=== PATIENT | female | born 1970 | race Caucasian/White ===

== ENCOUNTER 2017-07-16 10:25 | Observation (INO) ==
[2017-07-16] MEDS ORDERED: Aspirin 81 MG TAB.CHEW PO STA (10:59)
[2017-07-16] MEDS ORDERED: Nitroglycerin 0.4 MG TAB.SUBL SL PRN ×2 (11:00→13:14)
--- NOTE | 2017-07-16 11:04 | Emergency Department Note ---
Disposition Clinical Impression: Heart palpitations, Dyspnea on exertion, History of atrial fibrillation without current medication Chest pain Qualifiers: Chest pain type: unspecified Qualified Code(s): R07.9 - Chest pain, unspecified Disposition: Admitted As Inpatient Condition: Fair Time of Disposition: 13:29 General Adult HPI - General Chief complaint: ED Chest Pain Stated complaint: hypertension Time Seen by Provider: 07/16/17 10:32 Source: patient Mode of arrival: ambulatory Limitations: no limitations Nursing Notes Reviewed: Yes Vital Signs Reviewed: Yes - History of Present Illness HPI Narrative: Patient is a 47-year-old female that presents to the emergency department due to having heaviness in the center of her chest as well as feeling like her heart skips a beat. Patient states that this all began around 8:00 this morning. Patient states that the chest heaviness does not radiate anywhere. She does admit to having some shortness of breath with this. Patient denies any diaphoresis, nausea, vomiting. She does state that moving or talking seems to make her symptoms worse. Nothing seems to make her symptoms better. Patient states that she did have a headache this morning and her blood pressure was 179/105. She states that she does not normally have issues with high blood pressure. He also states that she has had congestion recently as well as a cough with sputum production. Pain Scale: 7 - Related Data Home Medications Medication Instructions Recorded Confirmed Insulin Degludec [Tresiba 25 - 60 units SQ QAM 07/16/17 07/16/17 Flextouch U-100] Liraglutide [Victoza 2-Manuel] 1.8 mg SQ DAILY 07/16/17 07/16/17 Omeprazole [PriLOSEC] 20 mg PO DAILY 07/16/17 07/16/17 Allergies Allergy/AdvReac Type Severity Reaction Status Date / Time No Known Allergies Allergy Verified 07/16/17 10:31 All systems ED: reviewed and negative except as stated. Constitutional: Denies: fever, chills Cardiovascular: Reports: chest pain, palpitations Respiratory: Reports: cough, dyspnea, sputum production Gastrointestinal: Denies: abdominal pain, nausea, vomiting Genitourinary: Denies: urgency, dysuria, frequency Neurological: Reports: headache Past Medical History - Past Medical History Medical history: Reports: diabetes Psychiatric history: Reports: no psych history - Social History Smoking Status: Never smoker Smokeless Tobacco Status: No Alcohol use: Reports: none Drug use: Reports: none Physical Exam - General Limitations: no limitations General appearance: alert, anxious - Head Head exam: atraumatic, normocephalic - Neck Neck exam: Present: normal inspection, full ROM, trachea midline - Respiratory Respiratory exam: Present: normal lung sounds bilaterally, wheezes (Right upper lobe). Absent: respiratory distress - Cardiovascular Cardiovascular exam: Present: regular rate, normal rhythm, normal heart sounds, +S1, +S2 - Abdominal Exam Abdominal exam: Present: soft, tenderness, normal bowel sounds Abdominal tenderness: Present: epigastrium, mild - Neurological Exam Neurological exam: Present: alert, oriented X3 - Psychiatric Psychiatric exam: Present: normal affect, normal mood - Skin Skin exam: Present: warm, dry, intact Course - Consultations Consultation #1: I called and spoke with Dr. Tavares and he has accepted the patient to his service. The patient will be admitted to the hospital at this time. Time: 12:45 Vital Signs Temperature 98.2 F 07/16/17 10:25 Pulse Rate 86 07/16/17 10:25 Respiratory Rate 16 07/16/17 10:25 Blood Pressure 163/95 07/16/17 10:25 O2 Sat by Pulse Oximetry 97 07/16/17 10:25 Temperature 98.2 F 07/16/17 10:25 Pulse Rate 82 07/16/17 12:35 Respiratory Rate 22 07/16/17 12:35 Blood Pressure 151/95 07/16/17 12:35 O2 Sat by Pulse Oximetry 96 07/16/17 12:35 Oxygen Delivery Oxygen Delivery Room Air Medical Decision Making - [facility] Narrative Medical decision making narrative: The patient having pressure in the center of her chest within a cardiac workup as well as obtain a lipase. We will give the patient aspirin. The patient has refused nitroglycerin because of having treatments to her eyes for diabetic retinopathy. The patient's laboratory results show slight elevation in her hemoglobin as well as her glucose. Troponin was 0.02 and the lipase is within normal limits. The chest x-ray showed no acute pulmonary process. EKG showed sinus rhythm. When the patient went for her chest x-ray from transfer from the bed to the x-ray table she became somewhat short of breath. The patient denied any leg pain, leg swelling, long car rides, hormone therapy, history of cancer, history of clot. Due the patient having continual chest discomfort as well as dyspnea on exertion we feel that the patient should be admitted to the hospital for further observation and evaluation. I spoken with and he has accepted the patient to his service. I have called and spoke with Dr Tavares and he has accepted the patient to his service. The patient will be admitted to the hospital at this time. - Medical Records Medical records reviewed: Yes I reviewed the patient's medical records. - Lab Data Lab results reviewed: Yes I reviewed the patient's lab results. Result diagrams: 07/16/17 10:59 07/16/17 10:59 Lab Results 07/16/17 07/16/17 07/16/17 Range/Units 10:59 10:59 10:59 WBC 5.8 (4.3-11.1) K/mcL RBC 5.60 H (3.82-4.97) M/mcL Hgb 15.8 H (11.5-15.4) g/dL Hct 48.5 H (35.3-44.9) % MCV 86.6 (83.0-100.0) fL MCH 28.2 (28.0-33.3) pg MCHC 32.6 (31.6-35.5) g/dL RDW 13.2 (11.5-14.5) % Plt Count 251 (140-400) K/mcL MPV 10.9 (9.4-12.4) fL Immature Gran % 0.3 (0-4) % Seg Neutrophils % 65.7 % Lymphocytes % 24.0 % Monocytes % 6.9 % Eosinophils % 2.4 % Basophils % 0.7 % Neutrophils # 3.8 (1.6-8.9) K/mcL Lymphocytes # 1.4 (0.6-4.6) K/mcL Monocytes # 0.4 (0.0-1.3) K/mcL Eosinophils # 0.1 (0.0-0.6) K/mcL Basophils # 0.0 (0.0-0.2) K/mcL Immature Plt Fraction 5.7 (1.1-6.1) % Sodium 139 (136-145) mEq/L Potassium 3.6 (3.5-4.5) mEq/L Chloride 104 (98-109) mEq/L Carbon Dioxide 25 (19-29) mEq/L BUN 12 (7-20) mg/dL Creatinine 0.69 (0.57-1.11) mg/dL Est GFR ( Amer) > 60 (> 60) Est GFR (Non-Af Amer) > 60 (> 60) BUN/Creatinine Ratio 17 (6-26) Glucose 139 H (70-99) mg/dL Calculated Osmolality 290 (280-300) Calcium 9.3 (8.6-10.8) mg/dL Troponin I 0.02 (0-0.03) ng/mL Lipase 21 (8-78) Units/L - Radiology Data Radiology results reviewed: Yes I reviewed the patient's radiology results. Chest X-Ray 07/16/17 10:58 IMPRESSION: No acute process. D/ / Yarely Brantley MD / Yarely Brantley MD Interpreting Provider: Yarely Brantley MD - EKG Data EKG #1 EKG attestation: Yes I reviewed and interpreted this EKG. EKG results narrative: EKG showed a sinus rhythm with a rate of 85 bpm, SD interval of 219, QRS duration of 118, QTC of 393. There are Q waves in leads 3. No acute ischemic changes were noted on this EKG. No old EKG was available for comparison. Attestation Statement - Attestation Attestation: I examined this patient and my medical decision-making was reviewed with the Resident Physician, Dr. Castillo. I agree with the documented findings, disposition and treatment plan as described except to the extent set forth below. Patient is a 39-year-old white female with a history of diabetes mellitus who presents to the emergency Department today with complaints of gradual onset substernal chest pain associated with palpitations shortness of breath diaphoresis and nausea. Patient states this began this morning about 8:00. Patient has a history of prior atrial fibrillation and states that she was concerned that her heart rate was out of rhythm and now is causing her symptoms. Patient states it was about 9 years ago when she had atrial fibrillation although currently she is not on any beta blockers, calcium channel blockers or other blood thinning medications. She states she has had no problem with her heart rate since that time. Patient states that her symptoms are exacerbated by exertion any attempts to get up and even walk a few steps across the room exacerbate her condition and bring back her symptoms. Symptoms are resolved with rest. Here in the laying in the bed patient denies any current symptoms, stating it has resolved she has been sitting still. Patient's physical exam findings as documented. Vital signs are stable. Mild elevation in patient's blood pressure. On arrival patient was placed on a manager monitoring and pulse ox IV saline well was established and EKG was obtained patient's EKG was normal sinus rhythm, with evidence for LVH and old inferior changes but no acute ischemia today. Patient was given aspirin, nitroglycerin trial was ordered but patient declined. Patient has been pain-free during her ED course with one exacerbation with activity when she was moved to the x-ray table for chest x-ray. Patient's chest x-ray is unremarkable. Lab evaluation is within normal limits, initial troponin was 0.02. Patient's heart score equals 5. Patient would benefit from hospitalization admission and further evaluation of these symptoms were exertional chest pain and dyspnea. Patient on arrival is perk negative. He should with positive family history for CAD. Discussed admission with the patient who agrees with this plan and case was discussed with the hospitalist who agreed to admit the patient for further evaluation and treatment. Patient is resting comfortably at this time improvement in her blood pressure and pain free at rest.
[2017-07-16 11:08] LABS: Basophils % 0.7 %; Eosinophils # 0.1 K/mcL (0.0-0.6); Eosinophils % 2.4 %; Hematocrit 48.5 % (35.3-44.9); Hemoglobin 15.8 g/dL (11.5-15.4); Immature Granulocytes % 0.3 % (0-4); Immature Platelets 5.7 % (1.1-6.1); Lymphocytes # 1.4 K/mcL (0.6-4.6); Mean Corpuscular HGB Conc 32.6 g/dL (31.6-35.5); Mean Corpuscular Hemoglobin 28.2 pg (28.0-33.3); Mean Corpuscular Volume 86.6 fL (83.0-100.0); Mean Platelet Volume 10.9 fL (9.4-12.4); Monocytes # 0.4 K/mcL (0.0-1.3); Monocytes % 6.9 %; Neutrophils # 3.8 K/mcL (1.6-8.9); Platelet Count 251 K/mcL (140-400); Red Cell Distribution Width 13.2 % (11.5-14.5); Segmented Neutrophils % 65.7 %
[2017-07-16 11:19] LABS: BUN/Creatinine Ratio 17 (6-26); Blood Urea Nitrogen 12 mg/dL (7-20); Calcium 9.3 mg/dL (8.6-10.8); Carbon Dioxide 25 mEq/L (19-29); Chloride 104 mEq/L (98-109); Glucose 139 mg/dL (70-99); Lipase 21 Units/L (8-78); Osmolality,Calculated 290 (280-300); Potassium 3.6 mEq/L (3.5-4.5); Sodium 139 mEq/L (136-145); eGFR For African Americans > 60 (> 60); eGFR For Non-African Americans > 60 (> 60)
[2017-07-16] MEDS ORDERED: Naloxone 0.4 MG/ML INJ IVP PRN (13:10)
[2017-07-16] MEDS ORDERED: Dextrose Gel 15 GM PO PRN ×2 (13:15)
[2017-07-16] MEDS ORDERED: D5% in Water 1,000 ML IVC PRN (13:15)
[2017-07-16] MEDS ORDERED: *HR* Dextrose 50 % in Water (Syg) 50 ML SYRINGE IVP PRN (13:15)
[2017-07-16] MEDS ORDERED: Ipratropium/Albuterol Neb 3 ML IH PRN (13:21)
--- NOTE | 2017-07-16 13:27 | Internal Med History&Physical ---
<Jennifer Leach M - Last Filed: 07/16/17 13:23> Date of Encounter: 07/16/17 Time of Encounter: 13:24 Assessment and Plan (1) Chest pain Current visit: Yes Status: Acute Patient reports shortness of breath, palpitations and chest pressure. EKG showed sinus rhythm with no ischemic changes. Initial troponin negative at 0.02. She has risk factors including diabetes, obesity and family history. Continuous case monitor serial troponins lipid panel with morning labs stress test and echocardiogram. Qualifiers: Chest pain type: precordial pain Qualified Code(s): R07.2 - Precordial pain (2) Heart palpitations Current visit: Yes Status: Acute Patient reports occasional palpitations. She reports a history of afib that resolved on its own, and did not require sustained treatment. EKG shows sinus rhythm with no acute ischemic changes and 1st degree AV block. Continous case monitor echocardiogram Consider Holter monitor on discharge if she continues to experience palpitations. (3) Hx of atrial fibrillation without current medication Current visit: Yes Status: Chronic see above. (4) Upper respiratory infection Current visit: Yes Status: Acute Patient reports congestion, cough, and shortness of breath for the last week. CXR showed no acute process. She is afebrile and WBC is normal at 5.8. Likely viral upper respiratory infection and/or bronchitis. Mucinex BID Duonebs Q6hr PRN. Qualifiers: URI type: unspecified viral URI Qualified Code(s): J06.9 - Acute upper respiratory infection, unspecified; B97.89 - Other viral agents as the cause of diseases classified elsewhere (5) Type 2 diabetes mellitus Current visit: Yes Status: Acute diabetic diet. check A1c Hold victoza check blood sugars ACHS sliding scale correction dose ACHS Hypoglycemic protocol Patient takes a sliding scale of long acting insulin (Tresiba) in the morning depending on fasting blood sugar. Will give half her lowest dose tomorrow as she will be NPO after midnight for testing. Qualifiers: Diabetes mellitus complication status: with ophthalmic complications Diabetes mellitus complication detail: with diabetic retinopathy Diabetic retinopathy severity: with unspecified retinopathy severity Diabetes mellitus macular edema: macular edema presence unspecified Diabetes mellitus terminal gauger supervisor insulin use: with nursing home use Laterality: bilateral Qualified Code(s): E11.319 - Type 2 diabetes mellitus with unspecified diabetic retinopathy without macular edema; Z79.4 - assisted (current) use of insulin (6) Hypertension Current visit: Yes Status: Acute Patient is hypertensive with blood pressures running 150s-170s systolic. She reports she was previously diagnosed with hyprtension, but after weight loss, her blood pressures improved and she was taken off her medication. Will give PRN hydralazine for SBP > 160 or dbp > 100. Consider starting her on Gab and/ or HCTZ if she remains hypertensive. Qualifiers: Hypertension type: essential hypertension Qualified Code(s): I10 - Essential (primary) hypertension (7) DVT prophylaxis Current visit: Yes Status: Acute ant-embolic stockings Lovenox SQ daily Internal Medicine - H&P: HPI Chief complaint: chest pain Admitted From: Emergency Dept Plans for Post Hospital Care: Home History of present illness: Ms. Gooden is a 47 year old female diabetes, GERD, asthma presents emergency department today with complaints of chest pain, palpitations and shortness of breath. Patient reports that she has not been feeling well for the last week with a cough and shortness of breath. She reports the cough is productive of thick clear sputum as the week went on. She has reports the shortness of breath is worse with activity. She also reports occasional chills and headache. Today she developed heaviness in her chest as well as some palpitations. She reports the heaviness is still there. She denies any numbness and tingling, fever or sweats. She denies any nausea, vomiting, abdominal pain or diarrhea. Evaluation in the emergency department included an EKG which showed sinus rhythm with no acute ischemic changes, first-degree AV block. Chest x-ray showed no acute process. Troponin was negative at 0.02. She was hypertensive with blood pressures 150s-170s systolic. On exam, patient alert and oriented, in no acute distress. Heart had regular rate and rhythm, lungs are clear bilaterally to auscultation. Abdomen was soft, nontender with positive bowel sounds. No peripheral edema, peripheral pulses intact. Past Med Surg Social Fam HX - Past Medical History Medical history: diabetes Psychiatric history: no psych history - Past Surgical History Surgical History: , cholecystectomy, hysterectomy, orthopedic, other - Social History Smoking Status: Never smoker Smokeless Tobacco Status: No Alcohol use: none Drug use: none - Family History Mother Living Status: Hx Family Cardiac Disorders: Yes Father Living Status: Cause of : AAA Hx Family Cardiac Disorders: Yes (AAA) Internal Medicine - H&P: Meds Insulin Degludec [Tresiba Flextouch U-100] 25 - 60 units SQ QAM 07/16/17 [ History] Liraglutide [Victoza 2-Manuel] 1.8 mg SQ DAILY 07/16/17 [History] Omeprazole [PriLOSEC] 20 mg PO DAILY 07/16/17 [History] 3 Allergy/AdvReac Type Severity Reaction Status Date / Time No Known Allergies Allergy Verified 07/16/17 10:31 All Systems PM: A 10-system review of systems was performed and is negative for pertinent findings except as documented above in the HPI. - Constitutional Constitutional: chills, fatigue, no fever(s), no night sweats - EENT Eyes: no change in vision, no discharge, no pain, no photophobia Ears: no ear discharge, no ear pain, no tinnitus Nose, mouth and throat: no dysphagia, no nasal discharge, no neck pain, no sore throat - Cardiovascular Cardiovascular ROS IM: chest pain, dyspnea, dyspnea on exertion, palpitations, no diaphoresis, no lightheadedness, no syncope - Respiratory Respiratory: cough, dyspnea, excessive phlegm production, no wheezing - Gastrointestinal Gastrointestinal: no abdominal pain, no diarrhea, no hematemesis, no hematochezia, no melena, no nausea, no vomiting - Genitourinary Genitourinary: no change in urinary stream, no dysuria, no flank pain, no hematuria - Musculoskeletal Musculoskeletal ROS IM: no numbness, no tingling - Integumentary Integumentary IM: no rash, no unusual bruising - Neurological Neurological ROS: no confusion, no convulsions, no focal weakness, no numbness, no tingling, no tremor(s) - Hematologic/Lymphatic Hematologic/Lymphatic: no easy bruising - Constitutional Vitals: Temp Pulse Resp BP Pulse Ox 98.2 F 82 22 151/95 96 07/16/17 10:25 07/16/17 12:35 07/16/17 12:35 07/16/17 12:35 07/16/17 12:35 General appearance: Present: A&O X 3, pleasant, obese - Head Head exam: Present: atraumatic, normocephalic - Eye Eye exam: Present: PERRL, conjuntiva pink, sclera anicteric Pupils: Present: PERRL - Neck Neck exam general surgery: Present: supple, trachea midline. Absent: lymphadenopathy - Respiratory Respiratory exam: Present: CTAB. Absent: accessory muscle use, rales, rhonchi, wheezes - Cardiovascular Cardiovascular exam: Present: RRR, +S1, +S2. Absent: diastolic murmur, gallop, rubs, systolic murmur - GI/Abdominal GI/Abdominal exam: Present: normal bowel sounds, soft, no peritoneal signs. Absent: distended, tenderness - Extremities Exam Extremities exam: Present: warm, radial pulses palpable and symmetrical. Absent : calf tenderness, cyanotic, pedal edema - Neurological Exam Neurological exam: Present: CN II-XII intact, oriented X3, no focal deficits. Absent: pronater drift, facial droop, speech deficit - Skin Skin exam: Present: dry, intact Internal Med - H&P Results - Labs CBC & Chem 7: 07/16/17 10:59 07/16/17 10:59 Labs: All Lab Results (24 Hours) 07/16/17 07/16/17 07/16/17 Range/Units 10:59 10:59 10:59 WBC 5.8 (4.3-11.1) K/mcL RBC 5.60 H (3.82-4.97) M/mcL Hgb 15.8 H (11.5-15.4) g/dL Hct 48.5 H (35.3-44.9) % MCV 86.6 (83.0-100.0) fL MCH 28.2 (28.0-33.3) pg MCHC 32.6 (31.6-35.5) g/dL RDW 13.2 (11.5-14.5) % Plt Count 251 (140-400) K/mcL MPV 10.9 (9.4-12.4) fL Immature Gran % 0.3 (0-4) % Seg Neutrophils % 65.7 % Lymphocytes % 24.0 % Monocytes % 6.9 % Eosinophils % 2.4 % Basophils % 0.7 % Neutrophils # 3.8 (1.6-8.9) K/mcL Lymphocytes # 1.4 (0.6-4.6) K/mcL Monocytes # 0.4 (0.0-1.3) K/mcL Eosinophils # 0.1 (0.0-0.6) K/mcL Basophils # 0.0 (0.0-0.2) K/mcL Immature Plt Fraction 5.7 (1.1-6.1) % Sodium 139 (136-145) mEq/L Potassium 3.6 (3.5-4.5) mEq/L Chloride 104 (98-109) mEq/L Carbon Dioxide 25 (19-29) mEq/L BUN 12 (7-20) mg/dL Creatinine 0.69 (0.57-1.11) mg/dL Est GFR ( Amer) > 60 (> 60) Est GFR (Non-Af Amer) > 60 (> 60) BUN/Creatinine Ratio 17 (6-26) Glucose 139 H (70-99) mg/dL Calculated Osmolality 290 (280-300) Calcium 9.3 (8.6-10.8) mg/dL Troponin I 0.02 (0-0.03) ng/mL Lipase 21 (8-78) Units/L - Diagnostic Studies Chest x-ray Additional comments: Chest X-Ray 07/16/17 10:58 IMPRESSION: No acute process. D/ / Yarely Brantley MD / Yarely Brantley MD Interpreting Provider: Yarely Brantley MD <Kenia Tavares - Last Filed: 07/16/17 18:49> Date of Encounter: 07/16/17 Internal Medicine - H&P: HPI History of present illness: Ms. Gooden is a 47 year old female All Systems PM: A 10-system review of systems was performed and is negative for pertinent findings except as documented above in the HPI. - Constitutional Vitals: Temp Pulse Resp BP Pulse Ox 97.9 F 104 18 144/72 94 07/16/17 16:20 07/16/17 16:20 07/16/17 16:20 07/16/17 16:20 07/16/17 16:20 Internal Med - H&P Results - Labs CBC & Chem 7: 07/16/17 10:59 07/16/17 10:59 Labs: Cardiac Enzymes 07/16/17 Range/Units 16:46 Troponin I 0.00 (0-0.03) ng/mL - Attending Attestation I have personally performed a face to face evaluation on this patient and I discussed the assessment and plan with the nurse practitioner. I have reviewed and agree with the documented care plan. History and Exam by me shows: Ms. Gooden is a 47 year old female diabetes, GERD, asthma presents emergency department today with complaints of chest pain, palpitations and shortness of breath. Patient reports that she has not been feeling well for the last week with a cough and shortness of breath. She reports the cough is productive of thick clear sputum as the week went on. She has reports the shortness of breath is worse with activity. She also reports occasional chills and headache. Today she developed heaviness in her chest as well as some palpitations. She reports the heaviness is still there. She denies any numbness and tingling, fever or sweats. She denies any nausea, vomiting, abdominal pain or diarrhea. Gen: A, A, O X3 Chest: mild diminished BS b/l, no crackles, rales, no wheezing Heart: S1 S2 + RRR No murmurs a/p 1. Acute chest pain Need to r/o ACS on Tele..Serial troponin Stress test in AM 2. URI symptoms Mostly viral etiology no abx needed supportive care
[2017-07-16 13:53] LABS: Hemoglobin A1C 7.8 %
[2017-07-16] MEDS: Insulin LISPRO 300 UNITS/3 ML VIAL SQ SCH ×2 (17:12→17:23)
[2017-07-16] MEDS: Acetaminophen 325 MG TABLET PO PRN (18:04)
[2017-07-16] MEDS ORDERED: Insulin DETEMIR 100 UNIT/ML X5UNITS SQ SCH (21:00)
[2017-07-16] MEDS ORDERED: Insulin LISPRO 300 UNITS/3 ML VIAL SQ SCH (21:00)
[2017-07-17 05:21] LABS: Basophils % 0.9 %; Eosinophils # 0.2 K/mcL (0.0-0.6); Eosinophils % 3.7 %; Hematocrit 42.2 % (35.3-44.9); Immature Granulocytes % 0.4 % (0-4); Lymphocytes # 1.6 K/mcL (0.6-4.6); Lymphocytes % 34.4 %; Mean Corpuscular HGB Conc 32.7 g/dL (31.6-35.5); Mean Corpuscular Hemoglobin 28.8 pg (28.0-33.3); Mean Corpuscular Volume 88.1 fL (83.0-100.0); Mean Platelet Volume 11.1 fL (9.4-12.4); Monocytes # 0.3 K/mcL (0.0-1.3); Neutrophils # 2.5 K/mcL (1.6-8.9); Platelet Count 215 K/mcL (140-400); Red Blood Count 4.79 M/mcL (3.82-4.97); Red Cell Distribution Width 13.5 % (11.5-14.5); Segmented Neutrophils % 53.6 %
[2017-07-17 05:23] LABS: Hemoglobin 13.8 g/dL (11.5-15.4)
[2017-07-17 05:50] LABS: BUN/Creatinine Ratio 17 (6-26); Blood Urea Nitrogen 13 mg/dL (7-20); Calcium 9.1 mg/dL (8.6-10.8); Carbon Dioxide 25 mEq/L (19-29); Chloride 105 mEq/L (98-109); Chol/HDL Ratio 5.2 (0-4.9); Cholesterol 172 mg/dL (< 200); Glucose 234 mg/dL (70-99); HDL Cholesterol 33 mg/dL (40-59); LDL Cholesterol,Calculated 98 mg/dL (0-99); Osmolality,Calculated 296 (280-300); Potassium 4.1 mEq/L (3.5-4.5); Sodium 139 mEq/L (136-145); Triglycerides 205 mg/dL (< 150); eGFR For African Americans > 60 (> 60); eGFR For Non-African Americans > 60 (> 60)
[2017-07-17] MEDS ORDERED: Regadenoson 0.4 MG/5 ML SYRINGE IVP ONE (06:12)
[2017-07-17] MEDS ORDERED: *HR* Enoxaparin 40 MG/0.4 ML SYRINGE SQ SCH (07:00)
--- NOTE | 2017-07-17 09:11 | Internal Med Progress Note ---
Date of Encounter: 07/17/17 Time of Encounter: 09:11 - Assessment and plan (1) Chest pain Current Visit: Yes Status: Acute Assessment and plan: 47 y F with w/Hx of Afib (dx 9 yrs ago no AC) and DM presenting with pressure in the center of her chest, and SOB on transfer during CXR -substernal chest pain associated with palpitations shortness of breath diaphoresis and nausea. - exacerbated by exertion, resolved with rest. ED: Troponin neg x 2 chest x-ray showed no acute pulmonary process EKG was normal sinus rhythm, with evidence for LVH Patient was given aspirin, nitroglycerin trial was ordered but patient declined. Qualifiers: Chest pain type: precordial pain Qualified Code(s): R07.2 - Precordial pain (2) Heart palpitations Current Visit: Yes Status: Acute Assessment and plan: On telemetry (3) Hx of atrial fibrillation without current medication Current Visit: Yes Status: Chronic (4) Dyspnea on exertion Current Visit: Yes Status: Acute (5) Hypertension Current Visit: Yes Status: Acute Qualifiers: Hypertension type: essential hypertension Qualified Code(s): I10 - Essential (primary) hypertension (6) Type 2 diabetes mellitus Current Visit: Yes Status: Acute Qualifiers: Diabetes mellitus complication status: with ophthalmic complications Diabetes mellitus complication detail: with diabetic retinopathy Diabetic retinopathy severity: with unspecified retinopathy severity Diabetes mellitus macular edema: macular edema presence unspecified Diabetes mellitus terminal operations supervisor insulin use: with terminal operations supervisor use Laterality: bilateral Qualified Code(s): E11.319 - Type 2 diabetes mellitus with unspecified diabetic retinopathy without macular edema; Z79.4 - senior living (current) use of insulin (7) DVT prophylaxis Current Visit: Yes Status: Acute - Subjective Interval history: No acute events overnight. - Constitutional Vitals: Temp Pulse Resp BP Pulse Ox 97.8 F 90 16 140/83 91 07/17/17 09:05 07/17/17 09:05 07/17/17 09:05 07/17/17 09:05 07/17/17 09:05 General appearance: Present: A&O X 3, pleasant, obese Internal Medicine: Result - Labs CBC & Chem 7: 07/17/17 04:59 07/17/17 04:59 Labs: Short CBC 07/17/17 Range/Units 04:59 WBC 4.6 (4.3-11.1) K/mcL Hgb 13.8 D (11.5-15.4) g/dL Hct 42.2 (35.3-44.9) % Plt Count 215 (140-400) K/mcL Neutrophils # 2.5 (1.6-8.9) K/mcL BMP 07/17/17 04:59 Sodium 139 Potassium 4.1 Chloride 105 Carbon Dioxide 25 BUN 13 Creatinine 0.76 Glucose 234 H Calcium 9.1 Cardiac Enzymes 07/16/17 07/16/17 Range/Units 16:46 22:03 Troponin I 0.00 0.00 (0-0.03) ng/mL - Impressions Impressions Echocardiogram 07/16/17 13:16 Impressions: LVEF 60-65%. Normal LV chamber size and function. Mild asymmetric hypertrophy of the basal septum. Mild left ventricular diastolic dysfunction. Normal right ventricular structure and function. No significant valvular dysfunction. Left Ventricular Wall Motion: Rest Echo Findings All wall segments showed normal motion. Findings: Study Quality * Technically adequate exam. ECG Findings * Normal sinus rhythm. Left Ventricle * LVEF 60-65%. * Normal LV chamber size and function. * Mild asymmetric hypertrophy of the basal septum. * Mild left ventricular diastolic dysfunction. Right Ventricle * Normal right ventricular structure and function. Left Atrium * Normal left atrial size. Right Atrium * Normal right atrial size. Interatrial Septum * Interatrial septum not well evaluated. Aortic Valve * Trileaflet aortic valve with normal function. * No aortic regurgitation. * No aortic stenosis. Mitral Valve * Normal mitral valve structure and function. * No mitral regurgitation. * No mitral stenosis. Tricuspid Valve * Normal tricuspid valve structure and function. * No tricuspid regurgitation. * Unable to estimate RVSP due to lack of TR jet. Pulmonic Valve * Pulmonic valve not well visualized. * No pulmonic regurgitation. Aorta * Normally sized aortic root. Pericardium * The pericardium appears normal. IVC * The IVC is not well evaluated. Pulmonary Artery * Normal visualized portions of the main pulmonary artery. - VTE Documentation of Mechanical Device: Graduated compression elastic hosiery Consult Discharge Plan - Plan Referrals: Sheila Villanueva, HOGS[employer] DUMPER [Primary Care Provider] - (web request sent on 07/17/17)
[2017-07-17] MEDS: Insulin LISPRO 300 UNITS/3 ML VIAL SQ SCH ×2 (09:29→12:00)
--- NOTE | 2017-07-17 09:48 | Nuclear Medicine Stress Report ---
Exercise Nuclear Stress Name: Christiane Gooden Date of Study: 07/17/2017 Date: 1970 Ht: 68.0 in Medical Record#: [id number] Age: 47 Wt: 218.0 lb Gender: Female Order #: [id number] Location: [facility] IP Room: [facility] Supervising Provider: Segun Magallon CNP Reading Physician: Wei Starr DO, FACRoxana, AMARILYS MARRERO Ordering Physician: Hernandez Fox MD Stress Technologist: Jin Johnson, WALLCOVERING TEXTURER, CPFT Brim Greaser Operator: Sole Teran Indications: Palpitations Impression: The exercise capacity was average. No chest discomfort reported. Gated EF = 75%. Small sized, moderate intensity, fixed apical lateral defect. Perfusion is worse on rest imaging and wall motion is normal. Findings are consistent with artifact. Perfusion imaging was negative for ischemia or infarct. History: Diabetes Stress Test Summary: Stress Test Type: Treadmill Protocol: Rui Baseline Information: Initial Heart Rate: 91 Blood Pressure: 138/88 Stress Information: Stress Time: 6 min 41 sec Test Terminated Due to (primary): Dyspnea Maximum Blood Pressure: 180/86 Maximum Heart Rate: 157 Percent Maximum Heart Rate Achieved: 91 Double Product: 18127 METS Reached: 7 Symptoms: Shortness of breath, Fatigue Nuclear Summary: SPECT myocardial perfusion imaging using Tc99m Sestamibi given intravenously was performed at rest and following cardiac stress testing. The resting images were obtained following initial dose of 11.3 mCi. Following stress an additional dose of 32.3 mCi was given at peak exercise or 30 seconds post regadenoson infusion. Medication Given: Time Medication Dose Units Route Findings: Stress Note * Resting ECG demonstrated normal sinus rhythm. * No baseline arrhythmias were noted. * Exercise ECG is negative for ischemia. * No arrhythmias were noted during stress. * The exercise capacity was average. * Patient had no chest pain during stress. * Normal hemodynamic responses to exercise. Study Quality * Study quality is average. Gated EF % * Gated EF = 75%. Left Ventricle * The left ventricle is not dilated. NORMALS * Normal wall motion. Apical Perfusion Rest * The apical lateral segment shows a moderate reduction in perfusion. Apical Perfusion Stress * The apical lateral segment shows a moderate reduction in perfusion. TID * No evidence of transient ischemic dilatation. * TID ratio = 0.88. Lung Uptake * There is no evidence of increase lung uptake. Updated by Wei Starr DO, GRETTA, JANES, AMARILYS on 07/17/2017 9:42:14 AM electronically signed on 07/17/2017 9:43:17 AM with status of Final
[2017-07-17 11:41] VITALS: BP 150/88
--- NOTE | 2017-07-17 13:57 | Electrocardiograph Report ---
[facility] Test Date: 2017-07-16 Pat Name: Christiane Gooden Department: 102 Room: 2A25 Gender: F Human Resources Recruiter: Lucas : 1970 Requested By: Stiven Castillo Order Number: [id number] Reading MD: Thomas Lacey MD Measurements Intervals Elizabeth Rate: 85 P: 5 NH: 219 QRS: -20 QRSD: 118 T: 8 QT: 351 QTc: 393 Interpretive Statements SINUS RHYTHM WITH FIRST DEGREE AV BLOCK MINIMAL VOLTAGE CRITERIA FOR LVH, CONSIDER NORMAL VARIANT [MEETS CRITERIA IN ONE OF: R(aVL), S(V1), R(V5), R(V5/V6)+S(V1)] INFERIOR MYOCARDIAL INFARCTION [40+ ms Q WAVE AND/OR ST/T ABNORMALITY IN II/aVF], PROBABLY OLD Electronically Signed On 07-17-2017 13:55:27 EDT by Thomas Lacey MD
[2017-07-17] MEDS: Acetaminophen 325 MG TABLET PO PRN (14:23)
--- NOTE | 2017-07-17 14:36 | Discharge Summary ---
<ElijahEva - Last Filed: 07/17/17 17:04> Date of Encounter: 07/17/17 Time of Encounter: 14:33 - Discharge Diagnosis (1) Chest pain Priority: Primary Status: Acute Qualifiers: Chest pain type: precordial pain Qualified Code(s): R07.2 - Precordial pain (2) Heart palpitations Priority: Secondary Status: Chronic (3) Hypertension Priority: Primary Status: Acute Qualifiers: Hypertension type: essential hypertension Qualified Code(s): I10 - Essential (primary) hypertension (4) Dyspnea on exertion Priority: Primary Status: Acute (5) Hx of atrial fibrillation without current medication Priority: Secondary Status: Chronic (6) Type 2 diabetes mellitus Priority: Primary Status: Chronic Qualifiers: Diabetes mellitus complication status: with ophthalmic complications Diabetes mellitus complication detail: with diabetic retinopathy Diabetic retinopathy severity: with unspecified retinopathy severity Diabetes mellitus macular edema: macular edema presence unspecified Diabetes mellitus middle or intermediate school principal insulin use: with detention use Laterality: bilateral Qualified Code(s): E11.319 - Type 2 diabetes mellitus with unspecified diabetic retinopathy without macular edema; Z79.4 - USP (current) use of insulin (7) DVT prophylaxis Priority: Secondary Status: Acute - Discharge Medications Prescriptions: Atorvastatin [Lipitor] 40 mg PO HS #30 tablet levoFLOXacin [Levaquin] 750 mg PO DAILY #5 tablet Lisinopril [Zestril] 10 mg PO DAILY #30 tablet Home Medications: Insulin Degludec [Tresiba Flextouch U-100] 25 - 60 units SQ QAM 07/16/17 [ History] Liraglutide [Victoza 2-Manuel] 1.8 mg SQ DAILY 07/16/17 [History] Omeprazole [PriLOSEC] 20 mg PO DAILY 07/16/17 [History] Atorvastatin [Lipitor] 40 mg PO HS #30 tablet 07/17/17 [Rx] Lisinopril [Zestril] 10 mg PO DAILY #30 tablet 07/17/17 [Rx] levoFLOXacin [Levaquin] 750 mg PO DAILY #5 tablet 07/17/17 [Rx] Allergies/Adverse Reactions: 3 Allergy/AdvReac Type Severity Reaction Status Date / Time No Known Allergies Allergy Verified 07/16/17 10:31 Procedures/tests Complete & Pending: Procedures Performed prior 72 hours Category Date Time Status NM lisa perf SPECT multi [NM] Routine Exams 07/16/17 13:37 Taken EV echocardiogram Routine Y 07/16/17 13:16 Completed SP exercise nuclear stress Routine Y 07/17/17 07:45 Completed Chest X-Ray 07/16/17 10:58 IMPRESSION: No acute process. D/ / Yarely Brantley MD / Yarely Brantley MD Interpreting Provider: Yarely Brantley MD Echocardiogram 07/16/17 13:16 Impressions: LVEF 60-65%. Normal LV chamber size and function. Mild asymmetric hypertrophy of the basal septum. Mild left ventricular diastolic dysfunction. Normal right ventricular structure and function. No significant valvular dysfunction. Left Ventricular Wall Motion: Rest Echo Findings All wall segments showed normal motion. Findings: Study Quality * Technically adequate exam. ECG Findings * Normal sinus rhythm. Left Ventricle * LVEF 60-65%. * Normal LV chamber size and function. * Mild asymmetric hypertrophy of the basal septum. * Mild left ventricular diastolic dysfunction. Right Ventricle * Normal right ventricular structure and function. Left Atrium * Normal left atrial size. Right Atrium * Normal right atrial size. Interatrial Septum * Interatrial septum not well evaluated. Aortic Valve * Trileaflet aortic valve with normal function. * No aortic regurgitation. * No aortic stenosis. Mitral Valve * Normal mitral valve structure and function. * No mitral regurgitation. * No mitral stenosis. Tricuspid Valve * Normal tricuspid valve structure and function. * No tricuspid regurgitation. * Unable to estimate RVSP due to lack of TR jet. Pulmonic Valve * Pulmonic valve not well visualized. * No pulmonic regurgitation. Aorta * Normally sized aortic root. Pericardium * The pericardium appears normal. IVC * The IVC is not well evaluated. Pulmonary Artery * Normal visualized portions of the main pulmonary artery. Date of admission: 07/16/17 13:05 Primary care physician: Sheila Villanueva CNP Discharging clinician: Eva Nava Anticipated date of discharge: 07/17/17 - Patient Status Disposition: Home, Self-Care Condition: Fair Overall status at discharge: patient is progressing back to baseline - Discharge Instructions Instructions: Lisinopril (By mouth), Atorvastatin (By mouth), Levofloxacin (By mouth), Chest Pain (DC) Follow Up With: Sheila Villanueva CNP [Primary Care Provider] - (web request sent on 07/17/17) Additional Instructions: Please follow up with your primary care provider in 1-2 weeks. Please follow up with the Gastroenterology service as scheduled. You have been prescribed 2 new medications: -Please initiate atorvastatin 40 mg PO daily. -Please initiate lisinopril 10 mg PO daily. -Please take 750 mg levofloxacin daily for 5 days Please return to the emergency room promptly for fever, shortness of breath, chest pain, chest pain associated with radiation to arm or jaw, or onset of new abdominal pain. - Diet and Activity Activity: increase activity as tolerated Diet: diabetic diet, low fat, low cholesterol, low salt diet Interval History: No acute events this AM. Hospital course: Ms. Gooden is a 47 year old female with history of Afib and DM with diabetic retinopathy with hemorrhage with a scheduled treatment appointment next week, presenting with pressure in the center of her chest, associated with palpitations shortness of breath, diaphoresis and nausea. She states chest pain was exacerbated by exertion and resolved with rest. The Patient was given aspirin in ED, nitroglycerin trial was ordered but the patient declined. Troponins were neg x 2. EKG was normal sinus rhythm in ED. Patient was hypertensive with blood pressures running 150s-170s systolic. She reported she was previously diagnosed with hypertension, but after weight loss, her blood pressures improved and she was taken off her medication. The patient was placed on telemetry. She was admitted for rule out for unstable angina with stress test to assess for inducible ischemia. Resting ECG demonstrated normal sinus rhythm. Exercise ECG is negative for ischemia. The Patient had no chest pain during stress and exhibited a normal hemodynamic responses to exercise. The patient's medication was optimized based on ACSVD risk with atorvastatin and lisinopril. Given the patient's history of atrial fibrillation and [id number] score =3 (F, HTN, DM history), patient was counseled to follow up with primary care providers and gastroenterology. Dr. Fox spoke with her on the phone regarding need for anticoagulation, as patient had not been on anticoagulation since since diagnosis approx. 9 years ago. She understood the risk of stroke. Patient was counseled on importance to follow up on discussion for anticoagulation with primary care providers. Patient's medication was optimized prior to discharge. She inquired if she could be seen by the inpatient service doctors as an outpatient as well. She had no other questions following discharge. - Time Spent with Patient Total time spent providing and/or coordinating discharge services: - Constitutional Vitals: Temp Pulse Resp BP Pulse Ox 97.6 F 98 16 150/88 92 07/17/17 11:33 07/17/17 11:33 07/17/17 11:07/17/17 11:33 07/17/17 11:33 General appearance: Present: A&O X 3, pleasant, obese - Head Head exam: Present: atraumatic, normocephalic - Eye Eye exam: Present: conjunctival injection (R eye). Absent: periorbital swelling - Respiratory Respiratory exam: Present: CTAB. Absent: accessory muscle use, rales, rhonchi, wheezes - Cardiovascular Cardiovascular exam: Present: RRR, +S1, +S2. Absent: gallop, rubs - GI/Abdominal GI/Abdominal exam: Present: normal bowel sounds, soft, no peritoneal signs. Absent: distended, tenderness - VTE Documentation of Mechanical Device: Graduated compression elastic hosiery <Dominique,Hernandez P - Last Filed: 07/17/17 17:47> Date of Encounter: 07/17/17 Procedures/tests Complete & Pending: Procedures Performed prior 72 hours Category Date Time Status NM lisa perf SPECT multi [NM] Routine Exams 07/16/17 13:37 Taken EV echocardiogram Routine Y 07/16/17 13:16 Completed SP exercise nuclear stress Routine Y 07/17/17 07:45 Completed Date of admission: 07/16/17 13:05 Primary care physician: Sheila Villaneuva [facility] Hospital course: Ms. Gooden is a 47 year old female - Time Spent with Patient Total time spent providing and/or coordinating discharge services: - Constitutional Vitals: Temp Pulse Resp BP Pulse Ox 97.6 F 98 16 150/88 92 07/17/17 11:33 07/17/17 11:33 07/17/17 11:33 07/17/17 11:33 07/17/17 11:33 - Attending Attestation I examined this patient and my medical decision-making was reviewed with the Resident Physician. I agree with the documented findings, disposition and treatment plan as described except to the extent set forth below. Patient has chronic paroxysmal atrial fibrillation. She is supposed to be on anticoagulation. CHADsVaSc2 is 3 She has proliferative diabetic retinopathy. She has a hematologic exudate. Patient is scheduled for ophthalmology workup and treatment planning on coming Thursday. This is the reason patient is not on any anticoagulation. I have discussed with the patient risk of having atrial fibrillation, association of a stroke at length. Patient verbalizes understanding. Patient will follow with PCP regarding anticoagulation once the ophthalmology issue is resolved
[2017-07-17] MEDS ORDERED: Insulin DETEMIR 100 UNIT/ML X5UNITS SQ SCH (21:00)
== END 2017-07-17 15:56 | disposition home or self-care (01) ==
LOC: EMEROO 10:25 → 2ANU 10:25
PROVIDERS: ADMIT Internal Medicine; ATTEND Internal Medicine

== ENCOUNTER 2020-12-16 15:24 | Observation (INO) ==
[2020-12-16] MEDS ORDERED: Isovue-370 500 ML BOTTLE IVP ONE (21:04)
[2020-12-16] MEDS ORDERED: Perflutren Lipid Microsphere 1.3 ML in 0.9 % Sodium Chloride 8.7 ML IVP PRN (21:05)
[2020-12-16] MEDS ORDERED: Nitroglycerin 0.4 MG TAB.SUBL SL PRN (21:06)
[2020-12-16] MEDS ORDERED: Acetaminophen 325 MG TABLET PO PRN (21:09)
[2020-12-16] MEDS ORDERED: Ondansetron 4 MG/2 ML VIAL IVP PRN (21:09)
[2020-12-16] MEDS ORDERED: Naloxone 0.4 MG/ML INJ IVP PRN (21:09)
[2020-12-16] MEDS ORDERED: D5% in Water 1,000 ML IVC PRN (21:19)
[2020-12-16] MEDS ORDERED: Dextrose Gel 15 GM/37.5 ML TUBE PO PRN ×2 (21:19)
[2020-12-16] MEDS ORDERED: *HR* Dextrose 50 % in Water (Vial) 50 ML VIAL IVP PRN (21:19)
[2020-12-16 22:04] LABS: INR 1.3; Prothrombin Time 14.5 Seconds (9.4-12.1)
[2020-12-16 22:34] LABS: Thyroid Stimulating Hormone 3.744 mcIU/mL (0.340-5.600)
[2020-12-17 03:39] LABS: Basophils % 0.4 %; Eosinophils # 0.1 K/mcL (0.0-0.6); Eosinophils % 1.4 %; Hematocrit 46.4 % (35.3-44.9); Hemoglobin 14.9 g/dL (11.5-15.4); Immature Granulocytes % 0.3 % (0-4); Lymphocytes # 2.3 K/mcL (0.6-4.6); Lymphocytes % 33.4 %; Mean Corpuscular HGB Conc 32.1 g/dL (31.6-35.5); Mean Corpuscular Hemoglobin 28.7 pg (28.0-33.3); Mean Corpuscular Volume 89.2 fL (83.0-100.0); Mean Platelet Volume 10.7 fL (9.4-12.4); Monocytes # 0.5 K/mcL (0.0-1.3); Monocytes % 6.8 %; Platelet Count 253 K/mcL (140-400); Red Cell Distribution Width 13.2 % (11.5-14.5); Segmented Neutrophils % 57.7 %; White Blood Count 6.9 K/mcL (4.3-11.1)
[2020-12-17 03:56] LABS: BUN/Creatinine Ratio 26 (6-26); Blood Urea Nitrogen 14 mg/dL (6-20); Calcium 9.2 mg/dL (8.6-10.3); Carbon Dioxide 22 mEq/L (23-29); Chloride 107 mEq/L (98-107); Glucose 133 mg/dL (70-105); Osmolality,Calculated 288 (280-300); Potassium 3.4 mEq/L (3.5-5.1); Sodium 138 mEq/L (136-145); eGFR For African Americans > 60 (> 60); eGFR For Non-African Americans > 60 (> 60)
[2020-12-17] MEDS ORDERED: *HR* Heparin 5,000 UNIT/ML VIAL SQ SCH (06:00)
[2020-12-17] MEDS ORDERED: Levothyroxine 25 MCG TABLET PO SCH (06:30)
[2020-12-17 08:02] VITALS: BP 122/75
[2020-12-17] MEDS: Insulin LISPRO 300 UNITS/3 ML VIAL SUBQ SCH ×2 (08:41→12:41)
[2020-12-17] MEDS ORDERED: Aspirin 81 MG TAB.CHEW PO SCH (09:00)
[2020-12-17] MEDS ORDERED: Ipratropium/Albuterol Neb 3 ML IH ONE (11:10)
[2020-12-17] MEDS ORDERED: Ipratropium 1 PUFF INHALER IH PRN (11:32)
[2020-12-17] MEDS ORDERED: GuaiFENesin/Dextromethorphan TABLET PO SCH (11:45)
[2020-12-17] MEDS ORDERED: Insulin LISPRO 300 UNITS/3 ML VIAL SUBQ SCH (21:00)
== END 2020-12-17 16:00 | disposition home or self-care (01) ==
LOC: 3BNU → SUATTDRO 19:01
PROVIDERS: ADMIT Internal Medicine; ATTEND Internal Medicine

== ENCOUNTER 2021-02-05 10:49 | Observation (INO) ==
[2021-02-05] MEDS ORDERED: Ondansetron 4 MG/2 ML VIAL IVP ONE (11:32)
[2021-02-05 11:56] LABS: Basophils % 0.6 %; Eosinophils # 0.1 K/mcL (0.0-0.6); Eosinophils % 0.9 %; Hemoglobin 15.8 g/dL (11.5-15.4); Immature Granulocytes % 0.4 % (0-4); Lymphocytes # 1.2 K/mcL (0.6-4.6); Lymphocytes % 22.4 %; Mean Corpuscular HGB Conc 32.2 g/dL (31.6-35.5); Mean Corpuscular Hemoglobin 29.3 pg (28.0-33.3); Mean Corpuscular Volume 90.9 fL (83.0-100.0); Mean Platelet Volume 10.9 fL (9.4-12.4); Monocytes # 0.3 K/mcL (0.0-1.3); Monocytes % 6.3 %; Neutrophils # 3.7 K/mcL (1.6-8.9); Platelet Count 270 K/mcL (140-400); Red Blood Count 5.39 M/mcL (3.82-4.97); Red Cell Distribution Width 13.7 % (11.5-14.5); Segmented Neutrophils % 69.4 %; White Blood Count 5.4 K/mcL (4.3-11.1)
[2021-02-05 12:04] LABS: Prothrombin Time 11.7 Seconds (9.4-12.1)
[2021-02-05 12:14] LABS: Alanine Aminotransferase 26 Units/L (7-52); Albumin 4.5 g/dL (3.5-5.7); Albumin/Globulin Ratio 1.3 (1.1-2.2); Alkaline Phosphatase 97 Units/L (34-104); Aspartate Amino Transferase 17 Units/L (13-39); BUN/Creatinine Ratio 29 (6-26); Bilirubin,Total 0.4 mg/dL (0.3-1.0); Blood Urea Nitrogen 16 mg/dL (6-20); Calcium 9.7 mg/dL (8.6-10.3); Carbon Dioxide 26 mEq/L (23-29); Chloride 102 mEq/L (98-107); Globulin 3.4 g/dL (2.4-3.5); Glucose 151 mg/dL (70-105); Osmolality,Calculated 290 (280-300); Sodium 138 mEq/L (136-145); Total Protein 7.9 g/dL (6.4-8.9); Troponin I < 0.03 ng/mL (< 0.04); eGFR For African Americans > 60 (> 60); eGFR For Non-African Americans > 60 (> 60)
[2021-02-05] MEDS ORDERED: diazePAM 2 MG TABLET PO ONE (12:34)
[2021-02-05 13:30] LABS: Bacteria,Urine Few per hpf (None-Few); Bilirubin,Urine Negative (Negative); Blood,Urine Negative (Negative); Clarity,Urine Clear (Clear); Color,Urine Colorless (Yellow); Glucose,Urine (UA) >=1000 mg/dL (Normal); Ketones,Urine 10 mg/dL (Negative); Leukocyte Esterase,Urine Negative (Negative); Mucus,Urine Few per lpf (None-Few); Nitrite,Urine Negative (Negative); PH,Urine 6.5 pH Units (5.0-8.0); Protein,Urine Negative (Neg-Trace); RBC,Urine 0-3 per hpf (0-3); Specific Gravity,Urine > 1.030 (1.010-1.025); Squamous Epithelial Cell,Urine Few per hpf (None-Few); Urobilinogen,Urine Normal (Normal); WBC,Urine 0-3 per hpf (0-3)
[2021-02-05] MEDS ORDERED: Naloxone 0.4 MG/ML INJ IVP PRN (15:51)
[2021-02-05] MEDS ORDERED: D5% in Water 1,000 ML IVC PRN (15:57)
[2021-02-05] MEDS ORDERED: Dextrose Gel 15 GM/37.5 ML TUBE PO PRN ×2 (15:57)
[2021-02-05] MEDS ORDERED: *HR* Dextrose 50 % in Water (Vial) 50 ML VIAL IVP PRN (15:57)
[2021-02-05] MEDS ORDERED: 0.9 % Sodium Chloride 1,000 ML IVC SCH (16:00)
[2021-02-05] MEDS ORDERED: Ondansetron 4 MG/2 ML VIAL IVP PRN (16:15)
[2021-02-05] MEDS ORDERED: Levalbuterol 1 PUFF INHALER IH PRN (16:16)
[2021-02-05] MEDS ORDERED: Albuterol 2.5 MG/3 ML NEBULIZER IH PRN (16:16)
[2021-02-05] MEDS ORDERED: Ipratropium 1 PUFF INHALER IH PRN (16:16)
[2021-02-05] MEDS: Insulin LISPRO 300 UNITS/3 ML VIAL SUBQ SCH (17:17)
[2021-02-05] MEDS: Acetaminophen 325 MG TABLET PO PRN (19:19)
[2021-02-06] MEDS ORDERED: Levothyroxine 25 MCG TABLET PO SCH (06:30)
[2021-02-06 06:50] LABS: Basophils % 0.6 %; Eosinophils # 0.1 K/mcL (0.0-0.6); Eosinophils % 2.1 %; Hematocrit 45.6 % (35.3-44.9); Hemoglobin 14.6 g/dL (11.5-15.4); Immature Granulocytes % 0.2 % (0-4); Mean Corpuscular Volume 93.6 fL (83.0-100.0); Mean Platelet Volume 10.5 fL (9.4-12.4); Monocytes # 0.5 K/mcL (0.0-1.3); Monocytes % 9.3 %; Neutrophils # 2.7 K/mcL (1.6-8.9); Platelet Count 243 K/mcL (140-400); Red Blood Count 4.87 M/mcL (3.82-4.97); Red Cell Distribution Width 13.7 % (11.5-14.5); Segmented Neutrophils % 50.8 %; White Blood Count 5.3 K/mcL (4.3-11.1)
[2021-02-06 07:08] LABS: BUN/Creatinine Ratio 30 (6-26); Blood Urea Nitrogen 17 mg/dL (6-20); Calcium 9.1 mg/dL (8.6-10.3); Carbon Dioxide 30 mEq/L (23-29); Chloride 104 mEq/L (98-107); Glucose 134 mg/dL (70-105); Osmolality,Calculated 292 (280-300); Potassium 3.9 mEq/L (3.5-5.1); Sodium 139 mEq/L (136-145); eGFR For African Americans > 60 (> 60); eGFR For Non-African Americans > 60 (> 60)
[2021-02-06] MEDS: Insulin LISPRO 300 UNITS/3 ML VIAL SUBQ SCH ×3 (08:30→17:26)
[2021-02-06] MEDS: Acetaminophen 325 MG TABLET PO PRN ×2 (08:33→17:28)
[2021-02-06 11:17] LABS: Adenovirus Not Detected (Not Detect); Bordetella Pertussis Not Detected (Not Detect); Chlamydophila pneumoniae Not Detected (Not Detect); Coronavirus 229E Not Detected (Not Detect); Coronavirus HKU1 Not Detected (Not Detect); Coronavirus NL63 Not Detected (Not Detect); Coronavirus OC43 Not Detected (Not Detect); Human Metapneumovirus Not Detected (Not Detect); Human Rhinovirus/Enterovirus Not Detected (Not Detect); Influenza A Subtype 2009 H1 Not Detected (Not Detect); Influenza B Not Detected (Not Detect); Mycoplasma pneumoniae Not Detected (Not Detect); Parainfluenza Virus 1 Not Detected (Not Detect); Parainfluenza Virus 2 Not Detected (Not Detect); Parainfluenza Virus 3 Not Detected (Not Detect); Parainfluenza Virus 4 Not Detected (Not Detect); Respiratory Syncytial Virus Not Detected (Not Detect); SARS-CoV-2 Not Detected (Not Detect)
[2021-02-06 14:25] VITALS: BP 130/79
[2021-02-07] MEDS ORDERED: *HR* Enoxaparin 40 MG/0.4 ML SYRINGE SQ SCH (06:00)
== END 2021-02-06 19:31 | disposition left against medical advice (07) ==
LOC: EMEROOARM 10:49 → 3BNU 10:49 → SUATTDRO 14:30 → 3BNU 16:39
PROVIDERS: ADMIT Internal Medicine; ATTEND Registered Nurse